=== PATIENT | male | born 2000 | race Caucasian/White ===

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

== ENCOUNTER 2023-02-19 22:50 | Emergency (ER) | payer BC | END 2023-02-20 03:06 | disposition home or self-care (01) | LOC: JD.ED 22:50 | DX: M25.561 Pain in right knee (principal); F17.210 Nicotine dependence, cigarettes, uncomplicated | CPT/HCPCS: 73562-26-RT; 73562-RT; 99283 ==